=== PATIENT | female | born 2000 | race Caucasian/White ===

== ENCOUNTER 2023-12-18 08:19 | Outpatient (REF) | payer BC, SELFPAY ==
[2023-12-18 08:43] LABS: MANUAL DIFF FLAG NO
[2023-12-18 09:00] LABS: Basophils Absolute Auto 0.1 X10*3/uL (0.0-0.2); Basophils Percent Auto 0.9 % (0-2); Eosinophils Absolute Auto 0.2 X10*3/uL (0.0-0.4); Eosinophils Percent Auto 1.5 % (0-4); Hematocrit 43.8 % (37.0-47.0); Hemoglobin 15.1 g/dl (12.0-16.0); Imm Gran Abs Auto 0.07 X10*3/uL (0.00-0.03); Imm Gran Pct Auto 0.5 % (0.0-0.4); Lymphocytes Absolute Auto 2.5 X10*3/uL (1.2-4.9); Mean Corpuscular HGB Conc 34.5 g/dl (31.0-35.0); Mean Corpuscular Hemoglobin 29.3 pg (27.0-33.0); Mean Corpuscular Volume 84.9 fL (80.0-98.0); Mean Platelet Volume 8.8 fL (9.4-12.3); Monocytes Absolute Auto 0.8 X10*3/uL (0.1-1.2); Monocytes Percent Auto 6.1 % (2-11); Neutrophils Absolute Auto 9.4 x10*3/uL (2.0-8.3); Platelet Count 564 X10*3/uL (160-400); Red Blood Count 5.16 X10*6/uL (4.20-5.50); Red Cell Distribution Width 13.9 % (11.0-16.0)
[2023-12-18 09:04] LABS: UPreg QC Valid YES; Urine Pregnancy NEGATIVE (NEGATIVE)
[2023-12-18 09:43] LABS: Estimated Average Glucose 85 mg/dL; Hemoglobin A1c % 4.6 % (<6.0)
[2023-12-18 10:00] LABS: Alanine Aminotransferase 14 U/L (0-31); Albumin Level 4.2 g/dL (3.5-5.0); Alkaline Phosphatase 104 U/L (39-117); Anion Gap 13 (12-20); Aspartate Amino Transferase 12 U/L (5-31); Bilirubin Total 0.5 mg/dL (0.0-1.0); Blood Urea Nitrogen 11 mg/dL (9-16); Calcium 9.4 mg/dL (8.4-10.2); Carbon Dioxide 19 mmol/L (22-29); Chloride 110 mmol/L (96-108); Cholesterol 191 mg/dL (<200); Estimated Glomerular Filt Rate > 60; Glucose Fasting 82 mg/dL (60-99); HDL Cholesterol 43 mg/dL (>40); LDL Cholesterol Calculated 138 mg/dL (<100); Potassium 3.9 mmol/L (3.3-5.1); Sodium 138 mmol/L (135-145); Total Protein 8.1 g/dL (6.5-8.0); Triglycerides 50 mg/dL (<150)
[2023-12-18 10:10] LABS: Free T4 (Free Thyroxine) 0.89 ng/dL (0.71-1.85); Vitamin D 25-OH Total 28.9 ng/mL (>30)
[2023-12-18 11:08] LABS: Folate 6.6 ng/mL (> or = 4.0); Vitamin B12 367 pg/mL (200-900)
== END 2023-12-18 08:20 | disposition home or self-care (01) ==
LOC: HO.LAB 08:19
PROVIDERS: PCP Physician Assistant; Visit Provider Psychiatry & Neurology Psychiatry
DX: F32.9 Major depressive disorder, single episode, unspecified (principal); F41.3 Other mixed anxiety disorders
CPT/HCPCS: 36415; 80053; 80061; 81025; 82306; 82607; 82746; 83036; 84439; 84443; 85025

== ENCOUNTER 2023-12-31 12:30 | Outpatient (RCR) | payer BC, SELFPAY ==
[2023-12-17 11:19] VITALS: BMI 38.7
[2023-12-17 11:20] VITALS: BP 114/78; PULSE 76; TEMP 36.9
--- NOTE | 2023-12-17 12:27 | PC.ADMIT ---
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 by family friend [place] Dennison d/t increased depression with SI denied any plans or intention of killing herself, and self harming behaviors cutting self superficially. 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 Patient lives with father and stepmother who are supportive. Her boyfriend and mother are also supportive. She reports she is doing well in school getting B's and has a few friends at school. Patient currently is alert and oriented x4. Calm and cooperative. Thoughts are clear and logical. She presented with depressed mood and affect. Regarding SI she stated I was thinking about like what would happen if I were to or sometimes I think about ways I could do it . Asked what types of thoughts she has had and she stated, What if I took a bunch of pills . When asked what stops her from following through she stated, The thing that stops me is my family and I don't want to hurt them . She denied any plans or intention of killing herself. I asked Millie how she would feel if her father held on to her medications so she does not have access to them until she was feeling better as a precaution. She agreed. Millie and I called her father together and he agreed he would hold on to her medications/lock them up and dispense them to her as a precaution until she was feeling better. [facility] staff is aware. Medications reconciled with patient and patient's pharmacy. She reports she is taking her medications as prescribed.
--- NOTE | 2023-12-17 19:22 | P.HPPSP_ITS ---
HPI Date of Service: 12/17/23 Chief Complaint: depression,anxiety Sources of Information: patient interviewed, chart reviewed and crisis/core team assessment reviewed HPI Narrative: Patient is a 23 year old female student, who has depression, anxiety, and medical history significant for hereditary spherocytosis, who was referred to PHP by her therapist for worsening SI and depression. She reports a past history of persistent mild depression since high school but reports developing more severe depressive symptoms within the past few months which is kind of new to me this year . 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 She admits she is not sure she likes her field of study, but feels she has no choice at this point but to complete her studies and start working. Past Psychiatric History: Denies IPLOC, PHP, detox admissions although has declined previous recommendations for PHP or IP on voluntary basis Respite admission 09/2023 Denies suicide attempts H/o SIB Therapist: seen through school, clinician is off for summer (wait Provider: Mamie Oliveros (since Sep) Previous trials: Lexapro (ineffective, felt number - almost failed out of school), Effexor (AE: incr SI), Zoloft (AE: ), CURRENT MEDICATIONS: Abilify 2 mg qd (since September, highest dose is 2 mg) Wellbutrin XL 150 mg qam (since Oct) topiramate 75 mg qhs since 06/2023 clonidine 0.1 mg PRN lansoprazole 15 mg BID famotidine 20 mg BID montelukast 10 mg QHS albuterol vitamin D 1000 IU [facility] Medical History (Updated 12/18/23 @ 03:07 by Karla Adhikari MD) Hereditary spherocytosis Headache Asthma History of concussion Narrative: 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 No suicides in family Social History: In a relationship for 10 months, he is supportive Substance History: Alcohol use: occasional, only socially no more than 2-3 drinks, never in excess Cannabis: marijuana used in the past occasionally, not regularly, last time >1 yr ago No other substance use history No nicotine use Diagnostics Vital Signs (24Hr): Vital Signs - 24 hr 12/17/23 11:20 Temperature 98.4 F Pulse Rate 76 Blood Pressure 114/78 BMI result Body Mass Index 38.7 Meds/Allergies Meds Home Medications ?Medication ?Instructions ?Recorded ?Confirmed ?Type omuilqxmrg-svrxdrxjllsia-jeobqlza 1 cap PO Q6H PRN migraine 12/17/23 12/17/23 History 50 mg-300 mg-40 mg capsule cetirizine 10 mg capsule (Zyrtec) 10 mg PO DAILY 12/17/23 12/17/23 History clonidine HCl 0.1 mg tablet 0.1 mg PO BID PRN Anxiety 12/17/23 12/17/23 History famotidine 20 mg tablet 20 mg PO DAILY 12/17/23 12/17/23 History lansoprazole 15 mg capsule,delayed 15 mg PO DAILY 12/17/23 12/17/23 History release montelukast 10 mg tablet 10 mg PO DAILY 12/17/23 12/17/23 History topiramate 50 mg tablet 75 mg PO BEDTIME 12/17/23 12/17/23 History Allergies Allergies Allergy/AdvReac Type Severity Reaction Status Date / Time Penicillins [PENICILLINS] Allergy Unknown RASH Unverified 04/21/20 19:52 Mental Status Exam Mental Status Exam Narrative: Alert, oriented, in no acute distress. Calm, cooperative, engaged. No psychomotor agitation or neurovegetative retardation. Eye contact maintained. Mood depressed, affect blunted. Speech normal. Thought process linear, coherent. Thought content related to stressors, transient helplessness, hopelessness, denies SI or HI. No paranoia or delusional content elicited. No evidence of psychosis. Insight and judgment - fair but adequate Assessment & Plan Assessment & Plan (1) Mood disorder of depressed type: Status: Acute Code(s): F32.A - Depression, unspecified Assessment and Plan: Persistent Depressive Disorder with current Major Depressive episode, single, severe without psychosis (acute on chronic depression) r/o other Depressive disorder due to general medical condition (HS) r/o other pervasive mood disorder (characterological, developmental, relational trauma) r/o bipolar spectrum disorder/BPIID (2) KD (generalized anxiety disorder): Status: Acute Code(s): F41.1 - Generalized anxiety disorder (3) Mental and behavioral problem: Status: Acute Code(s): F48.9 - Nonpsychotic mental disorder, unspecified; F69 - Unspecified disorder of adult personality and behavior Assessment and Plan: r/o cluster C or borderline traits r/o complex PTSD r/o developmental d/o Plan Admit to [facility] VS reviewed: julian; BP 114/87;?76 bpm increase Wellbutrin XL to 300 mg qAM (will have low threshold to lower dose for any activation/agitation) start guanfacine ER 1 mg qAM start Lamictal 25 mg qd continue Abilify 2 mg qd (hx of akathisia - may consider titrating in smaller increments; if poorly tolerated/ineffective will consider switching to Latuda) Continue other regular medications for now Routine lab work ordered UDS, EKG as indicated MassPat reviewed Continue to monitor as per protocol Patient educated on: diagnosis and medication risk/benefits Informed Consent: understands Reason for continued partial hosp. stay Substantial Risk for: inability to function, rapid decompensation and med/psych decompensation Certification I certify that partial hospital treatment is medically necessary due to the symptoms and problems resulting from the patient's mental illness and the failure to treat the patient at the partial hospital level of care would likely result in the patient requiring inpatient psychiatric care which could not be prevented at a less intensive level of care. Time Spent With Patient Time: Total time managing care of this patient today _60___ minutes.
--- NOTE | 2023-12-19 16:51 | HO.PHP ---
Client's case has been opened and reviewed in treatment team.
--- NOTE | 2023-12-20 06:58 | HO.PHP ---
PHP staff member faxed over a referral to [facility] for OP therapy for Isabela. PHP staff member is awaiting a phone call with the scheduled date and time.
--- NOTE | 2023-12-20 22:57 | P.PNPSP_ITS ---
Subjective Subjective Date of Service: 12/20/23 Reason For Visit: depression,anxiety Interim History: Has had trouble with sleep since increasing dose of WB to 300 mg. Wakes up feeling okay despite this. Notices feeling more tense. She also noticed some vague SI that occurred last night. Intensity was at a 5 out 10 not too bad but still I dont want to be having those thoughts . She was able to stave off these thoughts by developing some counter thoughts .. I have a family that loves me.. usually that thought is enough (to alleviate any intrusive thoughts). Mood still depressed today, but denies any suicidal thoughts or thoughts of giving up on life. Medication Compliance: Yes Side effects from medications: No Attending Groups: Yes Diagnostics Vital Signs (24Hr): BMI result Body Mass Index 38.7 Assessment & Plan Assessment & Plan (1) Mood disorder of depressed type: Status: Acute Code(s): F32.A - Depression, unspecified Assessment and Plan: Persistent Depressive Disorder with current Major Depressive episode, single, severe without psychosis (acute on chronic depression) r/o other Depressive disorder due to general medical condition (HS) r/o other pervasive mood disorder (characterological, developmental, relational trauma) r/o bipolar spectrum disorder/BPIID (2) KD (generalized anxiety disorder): Status: Acute Code(s): F41.1 - Generalized anxiety disorder (3) Mental and behavioral problem: Status: Acute Code(s): F48.9 - Nonpsychotic mental disorder, unspecified; F69 - Unspecified disorder of adult personality and behavior Assessment and Plan: r/o cluster C or borderline traits r/o complex PTSD r/o developmental d/o Plan decrease Wellbutrin XL back to 150 mg qAM (will have low threshold to lower dose for any activation/agitation) increase guanfacine ER 1 mg to BID (in AM and after lunch) alternatively may try taking 2 mg together in AM continue Lamictal 25 mg qd (will increase by 25 mg/d q 2weeks until 100 mg/d) taper off Abilify (hx of akathisia over 2 mg) start Latuda 20 mg qd to target depression Routine lab work reviewed with patient: leukocytosis, thrombocytosis (likely due to splenectomy); mild vit D deficiency increase vitamin D3 to 2000 IU/day (alterinatively may take 5000 IU qd x 2 months and return to 400 IU MV) UDS, EKG as indicated Continue to monitor as per protocol Patient educated on: diagnosis and medication risk/benefits Informed Consent: understands Reason for contiued partial hosp. stay Substantial Risk for: inability to function and med/psych decompensation Certification I certify that partial hospital treatment is medically necessary due to the symptoms and problems resulting from the patient's mental illness and the failure to treat the patient at the partial hospital level of care would likely result in the patient requiring inpatient psychiatric care which could not be prevented at a less intensive level of care. Total time managing care of this patient today _30___ minutes. Discharge Plan Discharge Attending provider: Karla Adhikari Medications: New lamotrigine 25 mg tablet 25 mg PO DAILY 14 Days Qty: 14 0RF guanfacine 1 mg tablet extended release 24 hr 1 mg PO QAM Qty: 14 0RF lurasidone 20 mg tablet 20 mg PO QPM Qty: 20 0RF Rx Instructions: must administer with food (at least 350 calories) cholecalciferol (vitamin D3) [Vitamin D3] 125 mcg (5,000 unit) tablet 125 mcg PO DAILY Qty: 30 1RF Continued famotidine 20 mg Tablet 20 mg PO DAILY Rx Instructions: OTC lansoprazole 15 mg Capsule,Delayed Release(Dr/Ec) 15 mg PO DAILY Rx Instructions: OTC montelukast 10 mg tablet 10 mg PO DAILY topiramate 50 mg tablet 75 mg PO BEDTIME Zyrtec 10 mg Capsule 10 mg PO DAILY Rx Instructions: OTC vvfosytecs-oenrqwaxiwwnc-kkst 50-300-40 mg capsule 1 cap PO Q6H PRN (Reason: migraine) bupropion HCl 150 mg tablet extended release 24 hr 150 mg PO QAM Qty: 30 0RF aripiprazole 2 mg tablet 2 mg PO DAILY Qty: 30 0RF Held clonidine HCl 0.1 mg tablet 0.1 mg PO BID PRN (Reason: Anxiety) Hold Instructions: Resume on 12/25/23. will discont if guanfacine effective Rx Instructions: Patient takes PRN Discontinued cholecalciferol (vitamin D3) [Vitamin D3] 10 mcg (400 unit) Capsule 10 mcg PO DAILY Stand Alone Forms: Patient Portal Discharge page Print Language: Kinyarwanda
--- NOTE | 2023-12-24 15:09 | HO.PHP ---
PHP staff member received a VM from [facility] through [facility], in which she provided the PHP clinician with Millie's OP therapy intake appointment. The appointment is scheduled for January 02, 2024 at 10 AM with Hannah Dean, at the [address] [place] [address] location.
--- NOTE | 2023-12-26 16:26 | HO.PHP ---
At roughly 1:20 leader writer sat with pt to support her after being triggered emotionally during a writing exercise. Pt sobbed heavily for several minutes before calming enough to speak. Stated the activity made her think of college and having to return to [employer] after [facility], stated she does not feel she can handle the stress of the program and had clinicals coming up. Reported she was receiving pressure from her family to return to college despite her current depression symptoms. Feels she has no choice. With motivational interviewing pt was able to identify what is holding her back from taking a break from college, identified her boyfriend as a major support and identified goals she can work towards to help reduce her depression sx's including a parttime job not in her current field, and focusing on her mental health and self-care daily. Pt expressed a desire to take a temporary leave from college, pt was encouraged to speak with the [facility] doctor tomorrow about her concerns. Pt offered to have [facility] staff sit with her and her parents should she like support talking to them about her mental health and her potential academic changes. Pt was appreciative for staff support, was able to return to group and complete. Pt reported she was safe and will be back for programming tomorrow.
--- NOTE | 2023-12-27 23:46 | HO.PHPPROGNO ---
Subjective Subjective Date of Service: 12/27/23 Reason For Visit: depression,anxiety Interim History: Doing okay: Patient still presents with blunted affect. Reports little dizziness when asked about the guanfacine. She has been taking twice daily. Perhaps some modest improvements, but not really certain, seeing as anxiety persists. I suggest we could tryi switching to propranolol to target somatic anxiety/incr HR/tension, hold off guanfacine for now, which she is agreeable to. Somatic anxiety rated at a 5 out of 10 in severity (same for cognitive anxiety). . She feels there has been in improvement in mood. Depression severity has improved to a 4 out of 10 in severity, compared to a 6 or 7 out of 10 on admission. She is tolerating Lamictal, which remains at 25 mg for another week. She is tolerating Latuda at 40 mg qd w supper. She endorses a hx of PMS sx as well as seasonal affective pattern to her depression, superimposed on her chronic depression. WE discuss possible trial of fluxoetine (especially given patient wasn't able to tolerate titration of Wellbutrin XL to 300 mg without causing AE) however patient is reluctant to try an SSRI or SNRI given history of poor tolerance/ineffectiveness. She feels she can be patient with Lamcital/Latuda combination. For now will see if anxiety better managed with propranolol. Medication Compliance: Yes Side effects from medications: Yes (as noted above) Attending Groups: Yes Review of Systems Acute medical concerns: No Diagnostics Vital Signs (24Hr): BMI result Body Mass Index 38.7 Assessment & Plan Assessment & Plan (1) Mood disorder of depressed type: Status: Acute Code(s): F32.A - Depression, unspecified Assessment and Plan: Persistent Depressive Disorder with current Major Depressive episode, single, severe without psychosis (acute on chronic depression) r/o other Depressive disorder due to general medical condition (HS) r/o other pervasive mood disorder (characterological, developmental, relational trauma) r/o bipolar spectrum disorder/BPIID (2) KD (generalized anxiety disorder): Status: Acute Code(s): F41.1 - Generalized anxiety disorder (3) Mental and behavioral problem: Status: Acute Code(s): F48.9 - Nonpsychotic mental disorder, unspecified; F69 - Unspecified disorder of adult personality and behavior Assessment and Plan: r/o cluster C or borderline traits r/o complex PTSD r/o developmental d/o Plan continue Wellbutrin XL 150 mg qAM (will have low threshold to lower dose for any activation/agitation) hold off guanfacine ER 1 mg to BID (in AM and after lunch) see if propranolol 5-10 mg BID prn anxiety better tolerated/more effective continue Lamictal 25 mg qd (will increase by 25 mg/d q 2weeks until 100 mg/d) continue Latuda 40 mg qd to target depression discontinued: Abilifjames (AE:akathisia@2mg) Routine lab work reviewed with patient: leukocytosis, thrombocytosis (likely due to splenectomy); mild vit D deficiency increase vitamin D3 to 2000 IU/day (alterinatively may take 5000 IU qd x 2 months and return to 400 IU MV) UDS, EKG as indicated Continue to monitor as per protocol Patient educated on: diagnosis and medication risk/benefits Informed Consent: understands Reason for contiued partial hosp. stay Substantial Risk for: inability to function, rapid decompensation and med/psych decompensation Certification I certify that partial hospital treatment is medically necessary due to the symptoms and problems resulting from the patient's mental illness and the failure to treat the patient at the partial hospital level of care would likely result in the patient requiring inpatient psychiatric care which could not be prevented at a less intensive level of care. Total time managing care of this patient today __30__ minutes. Discharge Plan Discharge Attending provider: Karla Adhikari Medications: New lamotrigine 25 mg tablet 25 mg PO DAILY 14 Days Qty: 14 0RF cholecalciferol (vitamin D3) [Vitamin D3] 125 mcg (5,000 unit) tablet 125 mcg PO DAILY Qty: 30 1RF lurasidone 40 mg tablet 40 mg PO QPM Qty: 30 0RF Rx Instructions: with evening meal; must administer with food (at least 350 calories) propranolol 10 mg tablet 5 - 10 mg PO BID PRN (Reason: anxiety) Qty: 20 0RF Continued famotidine 20 mg Tablet 20 mg PO DAILY Rx Instructions: OTC lansoprazole 15 mg Capsule,Delayed Release(Dr/Ec) 15 mg PO DAILY Rx Instructions: OTC montelukast 10 mg tablet 10 mg PO DAILY topiramate 50 mg tablet 75 mg PO BEDTIME Zyrtec 10 mg Capsule 10 mg PO DAILY Rx Instructions: OTC vlfedaijuv-vtyvrnbynwytm-wrmo 50-300-40 mg capsule 1 cap PO Q6H PRN (Reason: migraine) bupropion HCl 150 mg tablet extended release 24 hr 150 mg PO QAM Qty: 30 0RF Held clonidine HCl 0.1 mg tablet 0.1 mg PO BID PRN (Reason: Anxiety) Hold Instructions: Resume on 12/25/23. will discont if guanfacine effective Rx Instructions: Patient takes PRN Discontinued cholecalciferol (vitamin D3) [Vitamin D3] 10 mcg (400 unit) Capsule 10 mcg PO DAILY aripiprazole 2 mg tablet 2 mg PO DAILY Stand Alone Forms: Patient Portal Discharge page Print Language: Korean
--- NOTE | 2023-12-31 23:07 | HO.PHPPROGNO ---
Subjective Subjective Date of Service: 12/31/23 Reason For Visit: depression,anxiety Interim History: Pretty much doing the same Patient still reporting a lot of anxiety and stress dreams mostly about work and school, and just generally still feeling stressed. Her mood is still down, school is one of the biggest contributors. SHe was offered more time but says I'd like to discharge says she has appointments coming up including with a new therapist, intake on as well as an appointment with her psych provider on Saturday. She is thus far tolerating the Lamictal which will still take several weeks to reach therapeutics. Patient is aware and continues to be consistent with meds daily. She endorses feelings of helplessness but denies any thoughts, plan or intention to harm self or others. No SI since last week. Denies AH or VH. dc Medication Compliance: Yes Side effects from medications: No Attending Groups: Yes Review of Systems Acute medical concerns: No Mental Status Exam Mental Status Exam Narrative: Alert, oriented, in no acute distress. Calm, cooperative, engaged. No psychomotor agitation or neurovegetative retardation. Eye contact maintained. Mood depressed, affect blunted. Speech normal. Thought process linear, coherent. Thought content related to stressors, transient helplessness, hopelessness, but denies any SI, plan, intention or urge. Denies any irritability, anger, AI or HI. No paranoia or delusional content elicited. No evidence of psychosis. Insight and judgment - fair but adequate Diagnostics Vital Signs (24Hr): BMI result Body Mass Index 38.7 Assessment & Plan Assessment & Plan (1) Mood disorder of depressed type: Status: Acute Code(s): F32.A - Depression, unspecified Assessment and Plan: Persistent Depressive Disorder with current Major Depressive episode, single, severe without psychosis (acute on chronic depression) r/o other Depressive disorder due to general medical condition (HS) r/o other pervasive mood disorder (characterological, developmental, relational trauma) r/o bipolar spectrum disorder/BPIID (2) KD (generalized anxiety disorder): Status: Acute Code(s): F41.1 - Generalized anxiety disorder (3) Mental and behavioral problem: Status: Acute Code(s): F48.9 - Nonpsychotic mental disorder, unspecified; F69 - Unspecified disorder of adult personality and behavior Assessment and Plan: r/o cluster C or borderline traits r/o complex PTSD r/o developmental d/o Plan Discharge from [facility] continue on current medication regime including continued titration of Lamictal (up to 100 mg/d) will defer further medication management to OP senior policy analyst upcoming appointments w med provider and new therapist next week Patient educated on: diagnosis and medication risk/benefits Informed Consent: understands Reason for contiued partial hosp. stay Substantial Risk for: stable for discharge Certification I certify that partial hospital treatment is medically necessary due to the symptoms and problems resulting from the patient's mental illness and the failure to treat the patient at the partial hospital level of care would likely result in the patient requiring inpatient psychiatric care which could not be prevented at a less intensive level of care. Total time managing care of this patient today __30__ minutes. Discharge Plan Discharge Attending provider: Karla Adhikari Medications: New cholecalciferol (vitamin D3) [Vitamin D3] 125 mcg (5,000 unit) tablet 125 mcg PO DAILY Qty: 30 1RF lurasidone 40 mg tablet 40 mg PO QPM Qty: 30 0RF Rx Instructions: with evening meal; must administer with food (at least 350 calories) lamotrigine 25 mg tablet See Rx Instructions .ROUTE .COMPLEX Qty: 90 0RF Rx Instructions: take 2 tablet daily for 2 weeks then increase to 3 tablets daily lamotrigine 100 mg tablet 100 mg PO DAILY Qty: 30 0RF lorazepam 0.5 mg tablet 0.5 mg PO DAILY PRN (Reason: anxiety; as directed) Qty: 16 0RF Continued clonidine HCl 0.1 mg tablet 0.1 mg PO BID PRN (Reason: Anxiety) Hold Instructions: Resume on 12/25/23. will discont if guanfacine effective Rx Instructions: Patient takes PRN famotidine 20 mg Tablet 20 mg PO DAILY Rx Instructions: OTC lansoprazole 15 mg Capsule,Delayed Release(Dr/Ec) 15 mg PO DAILY Rx Instructions: OTC montelukast 10 mg tablet 10 mg PO DAILY topiramate 50 mg tablet 75 mg PO BEDTIME Zyrtec 10 mg Capsule 10 mg PO DAILY Rx Instructions: OTC vigcuvwyjx-xmotlblvtoafj-iaik 50-300-40 mg capsule 1 cap PO Q6H PRN (Reason: migraine) bupropion HCl 150 mg tablet extended release 24 hr 150 mg PO QAM Qty: 30 0RF Discontinued cholecalciferol (vitamin D3) [Vitamin D3] 10 mcg (400 unit) Capsule 10 mcg PO DAILY aripiprazole 2 mg tablet 2 mg PO DAILY Stand Alone Forms: Patient Portal Discharge page Print Language: Kyrgyz
== END 2023-12-31 23:59 | disposition home or self-care (01) ==
LOC: HO.PHPA 12:30
PROVIDERS: Visit Provider Psychiatry & Neurology Psychiatry
DX: F32.2 Major depressive disorder, single episode, severe without psychotic features (principal); F41.1 Generalized anxiety disorder; F48.9 Nonpsychotic mental disorder, unspecified; F69 Unspecified disorder of adult personality and behavior; Z79.899 Other long term (current) drug therapy
CPT/HCPCS: 90791; 90853